=== PATIENT | female | born 1950 | race Caucasian/White ===

== ENCOUNTER 2016-07-08 10:51 | Inpatient (IN) ==
[2016-07-08] MEDS ORDERED: ONDANSETRON 4 MG/2 ML VIAL IV STA (11:22)
[2016-07-08] MEDS ORDERED: ASPIRIN 325 MG TABLET PO STA (11:22)
[2016-07-08] MEDS ORDERED: MORPHINE 2 MG/1 ML SYRINGE IV STA (11:22)
[2016-07-08] MEDS ORDERED: ONDANSETRON 4 MG/2 ML VIAL ONE (11:58)
[2016-07-08] MEDS ORDERED: MORPHINE 2 MG/1 ML SYRINGE ONE (11:58)
[2016-07-08] MEDS ORDERED: ASPIRIN 325 MG TABLET ONE (11:58)
--- NOTE | 2016-07-08 12:16 | XRay Report ---
XR chest 2V Indication: Chest pain. Comparison: None. Technique: PA and lateral chest x-ray was performed. Findings: Heart size, mediastinal contour, and hilar structures demonstrate no significant abnormalities. The lung parenchyma is clear. Bones and soft tissues demonstrate no significant abnormalities. Impression: 1. No active cardiopulmonary disease. 07/08/2016 12:12 PM PROCEDURE INTERPRETED AT [facility] DEPARTMENT OF RADIOLOGY Final Report Signed by: Dr. Emory Wang
--- NOTE | 2016-07-08 12:17 | EKG Report ---
Stationary ECG Study [facility] ER Test Date: 07/08/2016 12:15:51 PM Pat Name: LINA OSORIO Department: Room: Gender: F Tie Layer: : 1950 Requested by: Paul Zurita Order Number: [id number] Reading MD: DUANE MAIN Intervals [place] Rate: 78 P: 76 CT: 155 QRS: -54 QRSD: 91 T: 27 QT: 403 QTc: 437 Interpretive Statements SINUS RHYTHM WITH SINUS ARRHYTHMIA INDETERMINATE AXIS LOW QRS VOLTAGE IN PRECORDIAL LEADS PATTERN CONSISTENT WITH PULMONARY DISEASE WARNING: DATA QUALITY MAY AFFECT INTERPRETATION Electronically Signed On 07-09-16 07:01:29 CDT by DUANE MAIN [email or web address]
[2016-07-08 12:27] LABS: Basophils # 0.1 10*3/uL (0.0-0.2); Basophils % 0.5 % (0.0-0.8); Eosinophils # 0.1 10*3/uL (0.0-0.87); Eosinophils % 0.6 % (0.00-10.9); Hematocrit 42.4 VOL% (35.7-47.0); Hemoglobin 14.1 GM/DL (12.0-16.0); Immature Granulocytes % 0.7 %; Immature Granulocytes Absolute 0.11 #; Lymphocytes % 6.1 % (21.3-54.2); Mean Corpuscular HGB Conc 33.3 GM/DL (32-36); Mean Corpuscular Hemoglobin 27 PG (27-34); Mean Corpuscular Volume 82.2 FL (87-102); Mean Platelet Volume 10.2 FL (9.6-12.0); Monocytes # 1.7 10*3/uL (0.11-0.8); Monocytes % 10.1 % (1.7-12.7); Neutrophils # 13.7 10*3/uL (1.4-7.4); Platelet Count 389 T/CUMM (130-400); Red Blood Count 5.16 MC/CUMM (3.8-5.5); Red Cell Distribution Width 13.6 % (9.3-17.3); White Blood Count 16.7 T/CUMM (4-12)
[2016-07-08 12:38] LABS: Albumin 3.7 G/DL (3.4-5.0); Bilirubin,Total 1.4 MG/DL (0.2-1.0); Calcium 9.8 MG/DL (8.5-10.1); Potassium 3.9 MMOL/L (3.5-5.1); Total Protein 7.1 G/DL (6.4-8.3)
--- NOTE | 2016-07-08 14:12 | Ultrasound Report ---
US gallbladder Indication: Right upper quadrant abdominal pain. Elevated liver function studies. Comparison: None. Technique: Using transcutaneous probe, ultrasound imaging of the right upper quadrant was performed. Ultrasound images were captured and stored. Imaged structures include the liver, gallbladder, pancreas, right kidney, aorta, and inferior vena cava. Findings: The right hepatic lobe is 18 cm in craniocaudal dimension. Images submitted of the liver demonstrate somewhat heterogeneous appearance of the liver parenchyma with no discrete slightly hyperechoic round to slightly oval mass within the right hepatic lobe. This has some areas of through transmission associated. Size of this lesion is 5.5 x 6.0 x 7.3 cm. The may be minimal layering gallstones and/or sludge. Gallbladder wall is thickened measuring 6.2 mm. No pericholecystic fluid is present. Common bile duct is minimally enlarged measuring 5.2 cm. The pancreas demonstrates no evidence of pancreatic mass or ductal dilatation. Adjacent anterior margin of the pancreas, there is a round hypoechoic structure with central increased echotexture suggesting lymph node. This measures up to 2 cm. Additional nodes in the jessie hepatis are not excluded. Right kidney measures 9.3 cm in craniocaudal dimension. The aorta and inferior vena cava are not included on study. Impression: 1. Round to oval hyperechoic focus within the right hepatic lobe is present as detailed. There is some evidence of through transmission. Differential considerations include hepatoma, atypical hemangioma, focal fat, and metastatic disease. CT abdomen and pelvis utilizing liver mass protocol is recommended. 2. Multiple enlarged lymph nodes are suggested in the region of the jessie hepatis and pancreatic head. 3. The common bile duct is minimally enlarged. 4. Gallbladder wall thickening is present. A minimal amount of layering sludge or tiny stones are not excluded. 07/08/2016 2:04 PM PROCEDURE INTERPRETED AT [facility] DEPARTMENT OF RADIOLOGY Final Report Signed by: Dr. Emory Wang
--- NOTE | 2016-07-08 14:27 | CT Report ---
CT abdomen pelvis w con Indication: Right upper quadrant abdominal pain. Liver mass. Comparison: None. Technique: CT of the abdomen and pelvis was performed following administration of intravenous contrast. The CT examination was performed using one or more of the following dose reduction techniques: Automatic exposure control, adjustment of the mA and kV according to patient size, or iterative reconstruction techniques. Findings: Lower chest demonstrates no evidence of acute pathology. There is a focal area of soft tissue attenuation round to oval in shape adjacent to the inferior vena cava arising from the liver measuring 16 x 16 mm compatible with neoplasm or metastatic adenopathy. Tumor thrombus within the inferior vena cava is not entirely excluded. Numerous areas of abnormal enhancement and mass are present throughout the right hepatic lobe. The largest of these lies within the dome of the liver and measures 8.8 x 12.7 x 8.1 cm. Additionally, multiple heterogeneously enhancing lymph nodes are demonstrated within the jessie hepatis and portacaval regions. Portacaval lymph nodes measure up to 17 mm in short axis dimension. Nodes within the jessie hepatis measure up to 15 mm in short axis dimension. The left hepatic lobe demonstrates a small focus of abnormal enhancement within the central aspect of the medial segment. Spleen is enlarged measuring 13 cm x 5.8 cm x 10.9 cm. Stomach demonstrates no significant abnormality. The gallbladder is unremarkable. The adrenal glands and kidneys demonstrate no acute findings. Some areas of focal thinning involving the right renal cortex may reflect scarring versus lobulation. Small amount free fluid is noted dependently within the pelvis. Large bowel demonstrates no significant abnormality. The duodenum and small bowel demonstrate no significant abnormality. Appendix is not clearly identified and may be surgically absent. There is a well-circumscribed hypoattenuating lesion within the right femoral head that has surrounding sclerotic bone. This may represent hemangioma or other benign process. Metastatic disease not entirely excluded Otherwise, no specific evidence of osseous metastatic disease is demonstrated. Intrapelvic contents demonstrate no acute findings. Prior hysterectomy is present. Urinary bladder is unremarkable. Impression: 1. Diffusely distributed neoplastic process within the liver involves right and left hepatic lobe the largest tumor measuring up to approximately 12.7 cm maximum dimension. The appearance is most suggestive of diffuse hepatocellular carcinoma. 2. Metastatic adenopathy within the jessie hepatis and portacaval di stations is demonstrated. 3. Immediately abutting the vena cava, there is a small focus of soft tissue attenuation that may represent metastatic adenopathy versus satellite nodule from hepatic tumor. The vena cava is not well visualized in this region and involvement/invasion of the vena cava cannot be excluded. 4. Well-circumscribed lesion within the right femoral head does not have typical appearance of osseous metastatic disease. Surveillance of a required to assess stability. Alternatively single phase nuclear medicine bone scan may be useful for further evaluation of the skeletal system for osseous metastatic disease. 5. Mild splenomegaly is demonstrated. Also, not mentioned above is collaterals within the gastrosplenic ligament are noted that could reflect minimal portal venous hypertensive changes. 07/08/2016 2:12 PM PROCEDURE INTERPRETED AT [facility] DEPARTMENT OF RADIOLOGY Final Report Signed by: Dr. Emory Wang
[2016-07-08] MEDS ORDERED: ONDANSETRON 4 MG/2 ML VIAL IV PRN (14:40)
[2016-07-08] MEDS ORDERED: ACETAMINOPHEN 325 MG TABLET PO PRN (14:40)
--- NOTE | 2016-07-08 14:40 | Emergency Department Note ---
Edgar Kuo Jamie, am scribing for, and in the presence of, Jerod Alvarez MD 11:34. Antonio Kuo Doug C, MD, personally performed the services described in this documentation, ascribed by Ayan Hernández in my presence, and it is both accurate and complete 420 . Arrival - Arrival Chief Complaint: Non-Specific Stated Complaint: pain undeneath ribs ED Nursing Triage Note: Pt c/o louis rib pain with HALL and N/V started in the left side saw Dr Guo on Saturday but now having pain in both sides. Also having wt loss since [place] time. Mode of Arrival: Ambulatory Limitations: No Limitations Source: Patient, RN Notes Reviewed Time Seen by Provider: 07/08/16 11:13 - History of Present Illness HPI Narrative: Patient is a 66-year-old white female who presents emergency room with complaint of left chest pain that she states began 6 days ago. Patient states she is now hurting in her right chest as well and the pain is sharp and pleuritic in nature. By states the pain is worse with deep breaths and certain movement. She denies any calf swelling or tenderness and is never had a history of DVT or PE. Patient states she has had a subjective fever and some sweating. Patient has no history of any significant cough. Onset (ago): unknown Consistency: constant Severity: moderate Allergies/Adverse Reactions: Allergies Allergy/AdvReac Type Severity Reaction Status Date / Time sulfamethoxazole Allergy RASH Verified 07/08/16 10:55 [From ] trimethoprim [From ] Allergy RASH Verified 07/08/16 10:55 Strong Painkillers AdvReac Nausea Uncoded 07/08/16 10:55 Home Medications: Home Medications Medication Instructions Recorded Confirmed Type Amlodipine Besylate 10 mg PO QPM 07/08/16 07/08/16 History Aspirin EC Tab 81 mg PO QPM 07/08/16 07/08/16 History Atorvastatin [Lipitor] 40 mg PO BEDTIME 07/08/16 07/08/16 History Calcium (Citr)/Vit D 200-125 1 tablet PO QPM 07/08/16 07/08/16 History [Citracal + D] Ferrous Sulfate Tab [Feosol 325 mg PO MOWEFR 07/08/16 07/08/16 History Original Tab] Krill/Om-3/Dha/Epa/Phospho/Ast 1 capsule PO DAILY 07/08/16 07/08/16 History [[place]-3 Krill Oil 300 mg Sfgl] Losartan/Hydrochlorothiazide 1 each PO QAM 07/08/16 07/08/16 History [Losartan-Hctz 100-12.5 mg Tab] Meloxicam 15 mg PO BID 07/08/16 07/08/16 History Metformin HCl 850 mg PO BID 07/08/16 07/08/16 History Multivit-Min/FA/Lycopen/Lutein 1 each PO QAM 07/08/16 07/08/16 History [Centrum Silver Tablet] Nabumetone 500 mg PO BID 07/08/16 07/08/16 History Pantoprazole Sodium 40 mg PO QAM 07/08/16 07/08/16 History Pioglitazone [Actos] 15 mg PO BID 07/08/16 07/08/16 History cloNIDine HCl [Clonidine HCl] 0.1 mg PO QPM 07/08/16 07/08/16 History traMADol TAB [Ultram] 50 mg PO Q6H PRN 07/08/16 07/08/16 History Review of System - Review of System 12 point system: reviewed and no additional remarkable complaints except as stated - Review of System Constitutional: Absent: chills, diaphoresis, fever, weakness Eyes: Absent: vision change Respiratory: Absent: cough Cardiovascular: Absent: chest pain Gastrointestinal: Present: abdominal pain. Absent: nausea, vomiting, diarrhea, constipation Musculoskeletal: Absent: joint swelling Skin: Absent: rash, change in color Neurological: Absent: headache, weakness, numbness, confusion Hematological/Lymphatic: Absent: easy bleeding, easy bruising Medical,Surgical,& Family Hx - Medical History Cardio: History of: Hypertension Endocrine: History of: Diabetes Mellitus (NIDDM) Gastrointestinal: History of: GERD - Surgical History Reproductive Surgeries: Surgical HX of;: Section, Hysterectomy - Family History Family History: Reports;: Family Heart Disease (Father with history of coronary artery disease), Family Stroke (Father of CVA at 48 years of age) - Social History Smoking Status: Never smoker Exam Vital Signs: Vital Signs Temperature 96.6 F L 07/08/16 11:36 Pulse Rate 101 H 07/08/16 11:36 Respiratory Rate 18 07/08/16 11:36 Blood Pressure 176/99 07/08/16 11:36 O2 Sat by Pulse Oximetry 98 07/08/16 10:54 - General General appearance: alert, in no apparent distress - Head Head exam: Present: atraumatic, normocephalic, normal inspection - Eye Eye exam: Present: normal appearance, PERRL, EOMI - ENT ENT exam: Present: normal exam, normal oropharynx, mucous membranes moist - Neck Neck exam: Present: normal inspection, full ROM - Chest Chest inspection: Present: normal inspection, symmetric chest wall rise - Respiratory Respiratory exam: Present: normal lung sounds bilaterally - Cardiovascular Cardiovascular exam: Present: regular rate, normal rhythm, normal heart sounds - Abdominal Exam Abdominal exam: Present: tenderness (RUQ), normal bowel sounds - Extremities Exam Extremities exam: Present: normal inspection, full ROM - Neurological Exam Neurological exam: Present: alert, oriented X3, reflexes normal - Psychiatric Psychiatric exam: Present: normal affect, normal mood - Skin Skin exam: Present: warm, dry, intact, normal color Course Course Narrative: Patient's clinical presentation, laboratory and radiographic findings were discussed with Dr. Pina. Patient will be admitted to services of Dr. Guo. Results - Labs CBC & BMP: 07/08/16 11:59 07/08/16 11:59 Lab Results: I have reviewed the patients labs Labs: Laboratory Tests 07/08/16 07/08/16 07/08/16 11:59 11:59 11:59 WBC 16.7 H MCV 82.2 L Neut % (Auto) 82.0 H Lymph % (Auto) 6.1 L Neut # (Auto) 13.7 H Lymph # (Auto) 1.0 L Fannin # (Auto) 1.7 H ESR Westergren 35 H Chloride 97 L BUN/Creatinine Ratio 22.00 H Glucose 196 H Total Bilirubin 1.40 H AST 73 H Alkaline Phosphatase 149 H C-Reactive Protein 4.68 H Albumin/Globulin Ratio 1.0 L - Diagnostic Findings Procedure: Chest x-ray: report reviewed by me (No active cardiopulmonary disease. ), Ultrasound: report reviewed by me, pending (Round to oval hyperechoic focus within the right hepatic lobe is present as detailed. There is some evidence of through transmission. The common bile duct is minimally enlarged. ) Disposition Clinical Impression: Liver mass, Abdominal pain Case discussed with: patient, patient's family Disposition: Still a Patient Condition: Guarded Time of Disposition: :40
[2016-07-08] MEDS ORDERED: traMADol 50 MG TABLET PO PRN (14:44)
[2016-07-08] MEDS: MORPHINE 2 MG/1 ML SYRINGE IV PRN (17:01)
[2016-07-08] MEDS: SODIUM CHLORIDE 0.9% 1,000 ML IV SCH (17:05)
[2016-07-08] MEDS ORDERED: GLUCAGON 1 MG VIAL IM PRN (17:29)
[2016-07-08] MEDS ORDERED: DEXTROSE 50% 25 GM/50 ML VIAL IV PRN ×2 (17:29→17:30)
[2016-07-08] MEDS: amLODIPine 10 MG TABLET PO SCH (18:34)
[2016-07-08] MEDS: cloNIDine 0.1 MG TABLET PO SCH (18:34)
[2016-07-08] MEDS: DOCUSATE SODIUM 100 MG CAPSULE PO SCH (20:38)
[2016-07-08] MEDS: MELOXICAM 7.5 MG TABLET PO SCH (20:38)
[2016-07-08] MEDS: INSULIN LISPRO 100 UNIT/ML SUBCUT SCH (21:31)
[2016-07-09] MEDS: SODIUM CHLORIDE 0.9% 1,000 ML IV SCH ×3 (01:01→22:42)
[2016-07-09] MEDS: MORPHINE 2 MG/1 ML SYRINGE IV PRN (01:04)
[2016-07-09 02:58] LABS: Basophils # 0.1 10*3/uL (0.0-0.2); Basophils % 0.8 % (0.0-0.8); Eosinophils # 0.3 10*3/uL (0.0-0.87); Eosinophils % 2.2 % (0.00-10.9); Hemoglobin 12.3 GM/DL (12.0-16.0); Immature Granulocytes % 0.5 %; Immature Granulocytes Absolute 0.06 #; Lymphocytes # 1.8 10*3/uL (1.4-4.0); Lymphocytes % 15.6 % (21.3-54.2); Mean Corpuscular HGB Conc 33.2 GM/DL (32-36); Mean Corpuscular Hemoglobin 27 PG (27-34); Mean Corpuscular Volume 81.7 FL (87-102); Mean Platelet Volume 10.2 FL (9.6-12.0); Monocytes # 1.6 10*3/uL (0.11-0.8); Monocytes % 13.6 % (1.7-12.7); Neutrophils # 7.7 10*3/uL (1.4-7.4); Neutrophils % 67.3 % (38.7-73.9); Platelet Count 326 T/CUMM (130-400); Red Blood Count 4.53 MC/CUMM (3.8-5.5); Red Cell Distribution Width 13.7 % (9.3-17.3); White Blood Count 11.5 T/CUMM (4-12)
--- NOTE | 2016-07-09 08:12 | Family Practice History&Phys ---
Assessment and Plan (1) Liver mass Status: Acute Assessment and plan: Mass is very suspicious for a hepatic carcinoma. I have consulted Dr. Segovia and he will assist with workup. Current Visit: Yes (2) Hypertension Status: Chronic Assessment and plan: Stable to present Current Visit: Yes (3) Type 2 diabetes mellitus Status: Chronic Assessment and plan: Stable at present. Will place on sliding scale Current Visit: Yes (4) Gastroesophageal reflux Status: Chronic Assessment and plan: Stable at present Current Visit: Yes History of Present Illness Chief complaint: Weight loss and chest pain History of present illness: Ms. Kurtz is a 66 year old female Patient is a 66-year-old white female who presents emergency room with complaint of left chest pain that she states began 6 days ago. Patient states she is now hurting in her right chest as well and the pain is sharp and pleuritic in nature. By states the pain is worse with deep breaths and certain movement. She denies any calf swelling or tenderness and is never had a history of DVT or PE. Patient states she has had a subjective fever and some sweating. Patient has no history of any significant cough. Patient was evaluated in the emergency room and found to have a 12.7 cm hepatic mass. There are changes that are suspicious for a carcinoma. She has had no symptoms related to this and some weight loss. In view of history will be admitted for further evaluation therapy Home Medications Medication Instructions Recorded Confirmed Type Amlodipine Besylate 10 mg PO QPM 07/08/16 07/08/16 History Aspirin EC Tab 81 mg PO QPM 07/08/16 07/08/16 History Atorvastatin [Lipitor] 40 mg PO BEDTIME 07/08/16 07/08/16 History Calcium (Citr)/Vit D 200-125 1 tablet PO QPM 07/08/16 07/08/16 History [Citracal + D] Ferrous Sulfate Tab [Feosol 325 mg PO MOWEFR 07/08/16 07/08/16 History Original Tab] Krill/Om-3/Dha/Epa/Phospho/Ast 1 capsule PO DAILY 07/08/16 07/08/16 History [[place]-3 Krill Oil 300 mg Sfgl] Losartan/Hydrochlorothiazide 1 each PO QAM 07/08/16 07/08/16 History [Losartan-Hctz 100-12.5 mg Tab] Meloxicam 15 mg PO BID 07/08/16 07/08/16 History Metformin HCl 850 mg PO BID 07/08/16 07/08/16 History Multivit-Min/FA/Lycopen/Lutein 1 each PO QAM 07/08/16 07/08/16 History [Centrum Silver Tablet] Nabumetone 500 mg PO BID 07/08/16 07/08/16 History Pantoprazole Sodium 40 mg PO QAM 07/08/16 07/08/16 History Pioglitazone [Actos] 15 mg PO BID 07/08/16 07/08/16 History cloNIDine HCl [Clonidine HCl] 0.1 mg PO QPM 07/08/16 07/08/16 History traMADol TAB [Ultram] 50 mg PO Q6H PRN 07/08/16 07/08/16 History Allergies Allergy/AdvReac Type Severity Reaction Status Date / Time sulfamethoxazole Allergy RASH Verified 07/08/16 16:57 [From ] trimethoprim [From ] Allergy RASH Verified 07/08/16 16:57 Strong Painkillers AdvReac Nausea Uncoded 07/08/16 16:57 Medical,Surgical,& Family Hx - Medical History Cardio: History of: Hypertension Endocrine: History of: Diabetes Mellitus (NIDDM) Genitourinary: History of: Recurring Urinary Tract Infections Gastrointestinal: History of: GERD Reproductive: History of: Endometriosis - Surgical History Reproductive Surgeries: Surgical HX of;: Section, Hysterectomy - Family History Family History: Reports;: Family Heart Disease (Father with history of coronary artery disease), Family Stroke (Father of CVA at 48 years of age) - Social History Smoking Status: Never smoker Frequency of Alcohol Use: None Type of Drug Use: None Marital Status: Lives With:: Spouse Functional capacity: independent ambulation Exam - Constitutional Vitals: Period Temp Pulse Resp BP Sys/Bowen Pulse Ox Last 24 Hr 96.7 F-98.9 F 60-92 18-20 118-175/57-98 97-100 General appearance: no acute distress - Head Head exam: Present: normal inspection - Eye Pupils: Present: RODERICK - Neck Neck exam: Present: normal inspection - Respiratory Respiratory exam: Present: clear to auscultation bilaterally - Cardiovascular Cardiovascular exam: Present: regular rate and rhythm - GI/Abdominal GI/Abdominal exam: Present: normal bowel sounds - Extremities Exam Extremities exam: Present: normal inspection - Back Exam Back exam: Present: normal inspection - Neurological Exam Neurological exam: Present: alert - Psychiatric Psychiatric exam: Present: normal affect - Skin Skin exam: Present: normal color Results - Labs CBC & BMP: 07/09/16 02:02 07/08/16 11:59
--- NOTE | 2016-07-09 08:30 | Oncology Consult Note ---
Assessment and Plan - Time spent with patient Time spent with patient: Greater than 30 minutes History of Present Illness History of present illness: Ms. Kurtz is a 66 year old female who was admitted yesterday with bilateral chest wall pain and was found to have numerous liver lesions on CT scan. There is also enlarged lymph nodes within the jessie hepatis and portacaval region. She decided to undergo biopsy today. 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 She has stayed up-to-date on her screenings. She had a mammogram done in March of this year which was negative. Her colonoscopy was done 6 years ago and was negative at that time. She has had a total abdominal hysterectomy with removal of her uterus and ovaries. She denies any symptoms of weight loss, fatigue, hematochezia, or hematemesis. Overall she has felt well other than the pain. Recommendations: She needs a biopsy of 1 of the liver lesions. Hopefully pathology will be able to direct us toward the primary tumor. I will go ahead and order tumor markers. I will do a CT of her chest for further workup. I do not see a reason for any type of endoscopy at this time. Also hold off on a bone scan. Once her tumor markers return I will be able to give further guidance. However , we are ultimately waiting for the pathology to return. If she is ready for discharge before pathology is back, I can continue with her workup as an outpatient. Home Medications Medication Instructions Recorded Confirmed Type Amlodipine Besylate 10 mg PO QPM 07/08/16 07/08/16 History Aspirin EC Tab 81 mg PO QPM 07/08/16 07/08/16 History Atorvastatin [Lipitor] 40 mg PO BEDTIME 07/08/16 07/08/16 History Calcium (Citr)/Vit D 200-125 1 tablet PO QPM 07/08/16 07/08/16 History [Citracal + D] Ferrous Sulfate Tab [Feosol 325 mg PO MOWEFR 07/08/16 07/08/16 History Original Tab] Krill/Om-3/Dha/Epa/Phospho/Ast 1 capsule PO DAILY 07/08/16 07/08/16 History [[place]-3 Krill Oil 300 mg Sfgl] Losartan/Hydrochlorothiazide 1 each PO QAM 07/08/16 07/08/16 History [Losartan-Hctz 100-12.5 mg Tab] Meloxicam 15 mg PO BID 07/08/16 07/08/16 History Metformin HCl 850 mg PO BID 07/08/16 07/08/16 History Multivit-Min/FA/Lycopen/Lutein 1 each PO QAM 07/08/16 07/08/16 History [Centrum Silver Tablet] Nabumetone 500 mg PO BID 07/08/16 07/08/16 History Pantoprazole Sodium 40 mg PO QAM 07/08/16 07/08/16 History Pioglitazone [Actos] 15 mg PO BID 07/08/16 07/08/16 History cloNIDine HCl [Clonidine HCl] 0.1 mg PO QPM 07/08/16 07/08/16 History traMADol TAB [Ultram] 50 mg PO Q6H PRN 07/08/16 07/08/16 History Allergies Allergy/AdvReac Type Severity Reaction Status Date / Time sulfamethoxazole Allergy RASH Verified 07/08/16 16:57 [From ] trimethoprim [From ] Allergy RASH Verified 07/08/16 16:57 Strong Painkillers AdvReac Nausea Uncoded 07/08/16 16:57 Medical,Surgical,& Family Hx - Medical History Cardio: History of: Hypertension Endocrine: History of: Diabetes Mellitus (NIDDM) Genitourinary: History of: Recurring Urinary Tract Infections Gastrointestinal: History of: GERD Reproductive: History of: Endometriosis - Surgical History Reproductive Surgeries: Surgical HX of;: Section, Hysterectomy - Family History Family History: Reports;: Family Heart Disease (Father with history of coronary artery disease), Family Stroke (Father of CVA at 48 years of age) - Social History Smoking Status: Never smoker Frequency of Alcohol Use: None Type of Drug Use: None 12 point system: reviewed and no additional remarkable complaints except as stated - Constitutional Constitutional: Absent: chills, fatigue, fever(s) - Cardiovascular Cardiovascular ROS IM: Present: chest pain - Respiratory Respiratory: Absent: cough, dyspnea - Gastrointestinal Gastrointestinal: Present: abdominal pain. Absent: early satiety, hematemesis, hematochezia, loose stools, melena, nausea Exam - Constitutional Vitals: Period Temp Pulse Resp BP Sys/Bowen Pulse Ox Last 24 Hr 96.7 F-98.9 F 60-92 18-20 118-175/57-98 97-100 General appearance: normal weight, no acute distress - Head Head Exam: Present: normocephalic, atraumatic - Eye Eye Exam: Present: EOMI Pupils: Present: PERRL - ENT ENT exam: Present: normal exam, normal oropharynx - Neck Neck exam: Absent: lymphadenopathy, thyromegaly - Respiratory Respiratory exam: Present: CTAB. Absent: wheezes - Cardiovascular Cardiovascular exam: Present: RRR. Absent: JVD, tachycardia - GI/Abdominal GI/Abdominal exam: Present: soft. Absent: ascites, distended, mass - Neurological Exam Neurological exam: Present: alert, oriented X3 - Psychiatric Psychiatric exam: Present: normal affect, normal mood - Skin Skin exam: Present: warm, dry Results - Labs CBC & BMP: 07/09/16 02:02 07/08/16 11:59 Lab Results: I have reviewed the past 24 hour labs - Diagnostic Findings Procedure: CT Abdomen and Pelvis: report reviewed by me, image reviewed by me
[2016-07-09] MEDS: MELOXICAM 7.5 MG TABLET PO SCH ×2 (09:13→20:45)
[2016-07-09] MEDS: LOSARTAN/HCTZ 50-12.5 MG TABLET PO SCH (09:13)
[2016-07-09] MEDS: LOSARTAN 50 MG TABLET PO SCH (09:13)
[2016-07-09] MEDS: PANTOPRAZOLE 40 MG TABLET PO SCH (09:13)
[2016-07-09] MEDS: INSULIN LISPRO 100 UNIT/ML SUBCUT SCH ×4 (09:13→22:42)
[2016-07-09] MEDS: DOCUSATE SODIUM 100 MG CAPSULE PO SCH ×2 (09:14→20:45)
[2016-07-09] MEDS: MULTIVITAMIN (CENTRUM) TABLET PO SCH (09:16)
--- NOTE | 2016-07-09 09:47 | CT Report ---
Exam: CT chest w con Date: 07/09/2016 8:14 AM Comparison: CT abdomen and pelvis 07/08/2016 Indication: Metastatic workup Technique:[Sequential scans of the chest were obtained following the injection of 80 cc Omnipaque 350. Coronal and sagittal 2-D reconstructions were obtained. Total DLP:: 276.4] Findings: The heart is borderline size with cardiac fat pads and coronary artery calcifications. No evidence of aortic dissection or definite pulmonary emboli. Enlarged mediastinal nodes. A node in the subcarinal location measures 13 mm in short axis. Limited evaluation of the breasts. Small hypodensities are noted in the visualized thyroid gland. Persistent large masses and splenomegaly. Small hiatal hernia with degenerative changes. Small areas of rarefaction are noted especially in the spine. Subsegmental atelectasis especially in the lower lobes. 6 mm noncalcified pulmonary nodule in the right middle lobe on scan 46. 6 mm noncalcified nodular density in the inferior lingula on scan 63. 4 mm noncalcified pulmonary nodule in the left lower lobe on scan 62. Additional smaller nodular findings are noted. Impression: Persistent large hepatic masses with findings consistent with pulmonary, di, and possible osseous metastatic disease. Indeterminate small hypodensities in the thyroid gland. Cardiophrenic fat pads with coronary artery calcifications and small hiatal hernia. This CT exam was performed using one or more the following dose reduction techniques: Automated exposure control, adjustment of the MA and/or KV according to patient size, or use of iterative reconstruction technique. PROCEDURE INTERPRETED AT [facility] DEPARTMENT OF RADIOLOGY Final Report Signed by: Dr. Danica Ortega
[2016-07-09 09:49] LABS: AFP Tumor < 1.3 NG/ML (0-8)
[2016-07-09 09:54] LABS: Cancer Antigen 19-9 < 1.2 U/ML (0-37); Carcinoembryonic Antigen < 0.5 NG/ML (0.0-5.0)
[2016-07-09 14:14] LABS: INR 1.1; PT Patient Result 11.4 SECS
[2016-07-09] MEDS ORDERED: DIAZEPAM 5 MG TABLET PO ONE (14:16)
[2016-07-09] MEDS: FERROUS SULFATE 325 MG TABLET PO SCH (14:31)
--- NOTE | 2016-07-09 15:18 | History and Physical Update ---
Sedation H&P Update - History and Physical H&P was reviewed, the patient examined and there: are no changes in the patients condition since last H&P was completed. (. CT guided liver biopsy requested.) - Dictation Physical: refer to scanned H&P - Sedation Plan for Sedation: minimal Patient Consent: Procedure disscussed with patient and patinet has consented., Risks and benefits were discussed with patient,including infection,, bleeding, injury to surrounding structures, seizure, temporary nerve, Patient understands and accepts potential risks/benefits and agrees to, proceed. ASA Class: II Airway Assessment: Class II: Soft palate, uvula, fauces visible
--- NOTE | 2016-07-09 15:40 | Post Interventional Procedure ---
Pre-op diagnosis: Liver mass Post-op diagnosis: same Procedure: CT guided liver biopsy Radiologist: Kim Taylor Anesthesia: local Specimens: other (5 core samples taken, 2 for flow cytometry) Condition: stable Description/Findings: A formal timeout was performed. Patient was placed supine on the CT table and historic preservationist imaging obtained. The ventral skin overlying the target lesion was prepped and draped in a sterile fashion. 5 cc 1% lidocaine was injected. Under CT fluoroscopic guidance, a 19-gauge guide needle was advanced into the lesion by this radiologist. Five 20-gauge core biopsies were obtained. Specimen was sent for routine pathology and flow cytometry. The needle was removed without complication. Patient tolerated the procedure well. Impression: CT-guided biopsy of mass in right lobe of liver Assessment and Plan - Time spent with patient Time spent with patient: Less than 30 minutes
--- NOTE | 2016-07-09 15:42 | CT Report ---
History: Liver mass Date: 07/09/2016 Study: CT guided liver biopsy Comparison exam: Abdomen CT exam 07/08/2016 CT-GUIDED BIOPSY LIVER Description: A formal timeout was performed. Patient was placed supine on the CT table and manager payroll imaging obtained. The ventral skin overlying the target lesion was prepped and draped in a sterile fashion. 5 cc 1% lidocaine was injected. Under CT fluoroscopic guidance, a 19-gauge guide needle was advanced into the lesion by this radiologist. Five 20-gauge core biopsies were obtained. Specimen was sent for routine pathology and flow cytometry. The needle was removed without complication. Patient tolerated the procedure well. Impression: CT-guided biopsy of mass in right lobe of liver. This CT exam was performed using one or more the following dose reduction techniques: Automated exposure control, adjustment of the MA and/or KV according to patient size, or use of iterative reconstruction technique. PROCEDURE INTERPRETED AT [facility] DEPARTMENT OF RADIOLOGY Final Report Signed by: Dr. Kim Taylro
[2016-07-09] MEDS: amLODIPine 10 MG TABLET PO SCH (18:52)
[2016-07-09] MEDS: cloNIDine 0.1 MG TABLET PO SCH (18:52)
[2016-07-10 06:35] LABS: Apearance,Urine CLEAR (Clear); Bacteria,Urine Occasional /HPF (Few); Bilirubin,Urine Negative (Negative); Blood, Urine Negative (Negative); Glucose,Urine (UA) Negative (Negative); Ketones,Urine Negative (Negative); Mucus,Urine Occasional /LPF (Occasional); Nitrite,Urine Negative (Negative); Protein,Urine Negative; RBC,Urine 2 /HPF (0-4); Urine Color Straw (Yellow); Urine Specific Gravity 1.008 (1.001-1.035); Urine Urobilinogen < 2.0 EU/DL (0.2-1.0); WBC,Urine 1 /HPF (0-6)
[2016-07-10 06:54] LABS: Basophils # 0.1 10*3/uL (0.0-0.2); Basophils % 0.5 % (0.0-0.8); Eosinophils # 0.4 10*3/uL (0.0-0.87); Eosinophils % 3.9 % (0.00-10.9); Hematocrit 37.2 VOL% (35.7-47.0); Hemoglobin 12.2 GM/DL (12.0-16.0); Immature Granulocytes % 0.4 %; Immature Granulocytes Absolute 0.04 #; Lymphocytes # 1.3 10*3/uL (1.4-4.0); Mean Corpuscular HGB Conc 32.8 GM/DL (32-36); Mean Corpuscular Hemoglobin 27 PG (27-34); Mean Corpuscular Volume 82.1 FL (87-102); Mean Platelet Volume 9.7 FL (9.6-12.0); Monocytes % 11.2 % (1.7-12.7); Neutrophils # 6.4 10*3/uL (1.4-7.4); Platelet Count 326 T/CUMM (130-400); Red Blood Count 4.53 MC/CUMM (3.8-5.5); Red Cell Distribution Width 13.3 % (9.3-17.3); White Blood Count 9.1 T/CUMM (4-12)
[2016-07-10] MEDS: SODIUM CHLORIDE 0.9% 1,000 ML IV SCH ×2 (07:16→09:59)
[2016-07-10] MEDS ORDERED: ZALEPLON 5 MG CAPSULE PO PRN (07:49)
--- NOTE | 2016-07-10 08:03 | Family Practice Progress Note ---
Family Practice - PN: Subj Interval history: Patient states she did not rest well because of chest wall pain and inability to sleep. She was not aware that she had as needed orders for sleep and pain. Still complaining of some pain in her left chest wall with radiation into her back. Patient states this started after using hedge clippers last week. She denies any right chest wall or abdominal pain. Also complaining of pain in her left shoulder. Thinks that she hurt the shoulder when she was working in the yard. Will start on topical medications to the affected area as well as give 2 doses of Solu-Medrol.. Part of a.m. lab is pending but tumor markers ordered yesterday are negative. Chest CT revealed enlarged mediastinal nodes with a 6 mm, noncalcified nodular density in the lingula and a 4 mm noncalcified density in the left lower lobe. Multiple smaller densities are noted. Questionable small density in the thyroid as well as questionable osseous metastatic involvement. We are awaiting the results from liver biopsy obtained last p.m.. I will allow Dr. Segovia decide if he wants to order bone scan and other studies. Will probably wait for the path report before ordering additional evaluation. I have discussed in detail with patient and . Exam (Progress Note) - Constitutional Vitals: Period Temp Pulse Resp BP Sys/Bowen Pulse Ox Last 24 Hr 98.1 F-98.9 F 72-90 16-20 145-195/57-86 96-100 Results - Labs CBC & BMP: 07/10/16 06:23 07/08/16 11:59 Assessment and Plan (1) Liver mass Status: Acute Assessment and plan: Mass is very suspicious for a hepatic carcinoma. I have consulted Dr. Segovia and he will assist with workup. Current Visit: Yes (2) Hypertension Status: Chronic Assessment and plan: Stable to present Current Visit: Yes (3) Type 2 diabetes mellitus Status: Chronic Assessment and plan: Stable at present. Will place on sliding scale Current Visit: Yes (4) Gastroesophageal reflux Status: Chronic Assessment and plan: Stable at present Current Visit: Yes
--- NOTE | 2016-07-10 08:26 | Oncology Progress Note ---
Assessment and Plan (1) Lung nodule, multiple Status: Acute Current Visit: Yes (2) Chest pain Status: Acute Current Visit: Yes (3) Liver mass Status: Acute Current Visit: Yes Oncology Subjective PN Interval history: Ms. Kurtz complains of continued rib pain and shoulder pain. Her CEA, CA-19-9 , and alpha-fetoprotein level yesterday were negative. Her CT chest did not show any obvious areas of malignancy but did mention 3 separate lung nodules and some slightly enlarged mediastinal lymph nodes. These by no means are definitive for metastatic disease but are definitely areas of concern given the process seen in her liver. She is undergone biopsy of 1 of the liver lesions and we are awaiting pathology. Given her severe pain, I will go ahead and order a bone scan to be done today. From an oncology standpoint she does not have to remain in the hospital and I can do the further workup for her through clinic. After the bone scan is done, we should wait for pathology to return before we pursue any further workup such as endoscopies or PET scans. Given the negative alpha-fetoprotein, primary liver cancer such as hepatocellular carcinoma is unlikely. A negative CEA and a negative CA-19-9 point away from a gastrointestinal malignancy but are by no means definitive. At this point we should also consider such variables as infectious etiologies, but these are extremely unlikely. We will have more guidance once pathology is able to evaluate her biopsy specimen. I have remained in contact with her son who is the urologist in [place] and my previous classmate in medical school. Exam - Constitutional Vitals: Period Temp Pulse Resp BP Sys/Bowen Pulse Ox Last 24 Hr 98.1 F-98.9 F 72-90 16-20 145-195/57-86 96-100 General appearance: normal weight, no acute distress - Head Head Exam: Present: normocephalic, atraumatic - Eye Eye Exam: Present: EOMI Pupils: Present: PERRL - ENT ENT exam: Present: normal exam, normal oropharynx - Neck Neck exam: Absent: lymphadenopathy, thyromegaly - Respiratory Respiratory exam: Present: CTAB. Absent: wheezes - Cardiovascular Cardiovascular exam: Present: RRR. Absent: JVD, tachycardia Results - Labs CBC & BMP: 07/10/16 06:23 07/08/16 11:59 Lab Results: I have reviewed the past 24 hour labs - Diagnostic Findings Procedure: CT Abdomen and Pelvis: report reviewed by me, CT - chest: report reviewed by me
[2016-07-10] MEDS ORDERED: methylPREDNISolone SOD SUC 40 MG/1 ML VIAL IV SCH (09:00)
[2016-07-10] MEDS: INSULIN LISPRO 100 UNIT/ML SUBCUT SCH ×4 (10:00→21:47)
[2016-07-10] MEDS: MELOXICAM 7.5 MG TABLET PO SCH ×2 (10:01→20:26)
[2016-07-10] MEDS: LOSARTAN 50 MG TABLET PO SCH (10:02)
[2016-07-10] MEDS: MULTIVITAMIN (CENTRUM) TABLET PO SCH (10:02)
[2016-07-10] MEDS: DOCUSATE SODIUM 100 MG CAPSULE PO SCH ×2 (10:03→20:26)
[2016-07-10] MEDS: PANTOPRAZOLE 40 MG TABLET PO SCH (10:03)
[2016-07-10] MEDS: methylPREDNISolone SOD SUC 40 MG/1 ML VIAL IV SCH ×2 (10:04→16:21)
[2016-07-10] MEDS: DICLOFENAC 1% GEL 100 GM TUBE TOP SCH ×3 (12:35→20:26)
[2016-07-10] MEDS: LOSARTAN/HCTZ 50-12.5 MG TABLET PO SCH (12:35)
--- NOTE | 2016-07-10 13:20 | Nuclear Medicine Report ---
Exam: Whole-body bone scan Date: July 10, 2016 Comparison: None Reason: Metastatic workup, liver mass Technique: 30 mCi of technetium 99m MDP was administered IV. Delayed anterior and posterior whole body images were then acquired. Findings: There is mild increased radiotracer activity at the shoulders, which is likely degenerative. There is no evidence of osseous metastatic disease. Impression: There is no evidence of osseous metastatic disease. PROCEDURE INTERPRETED AT [facility] DEPARTMENT OF RADIOLOGY Final Report Signed by: Dr. Jodie Vidales
[2016-07-10] MEDS: amLODIPine 10 MG TABLET PO SCH (18:27)
[2016-07-10] MEDS: cloNIDine 0.1 MG TABLET PO SCH (18:27)
[2016-07-11 05:58] LABS: Basophils % 0.2 % (0.0-0.8); Hematocrit 40.2 VOL% (35.7-47.0); Hemoglobin 13.2 GM/DL (12.0-16.0); Immature Granulocytes % 1.5 %; Immature Granulocytes Absolute 0.21 #; Lymphocytes # 1.4 10*3/uL (1.4-4.0); Lymphocytes % 9.4 % (21.3-54.2); Mean Corpuscular HGB Conc 32.8 GM/DL (32-36); Mean Corpuscular Hemoglobin 27 PG (27-34); Mean Corpuscular Volume 80.9 FL (87-102); Mean Platelet Volume 9.5 FL (9.6-12.0); Monocytes % 6.9 % (1.7-12.7); Neutrophils # 11.8 10*3/uL (1.4-7.4); Platelet Count 409 T/CUMM (130-400); Red Blood Count 4.97 MC/CUMM (3.8-5.5); Red Cell Distribution Width 13.5 % (9.3-17.3); White Blood Count 14.4 T/CUMM (4-12)
[2016-07-11 06:30] LABS: Albumin 3.1 G/DL (3.4-5.0); Bilirubin,Total 0.8 MG/DL (0.2-1.0); Calcium 9.1 MG/DL (8.5-10.1); Total Protein 6.4 G/DL (6.4-8.3)
[2016-07-11 06:31] LABS: Osmolality,Calculated 289.1 MOS/KG (273-304); Potassium 3.7 MMOL/L (3.5-5.1)
[2016-07-11] MEDS: SODIUM CHLORIDE 0.9% 1,000 ML IV SCH (07:18)
[2016-07-11] MEDS: INSULIN LISPRO 100 UNIT/ML SUBCUT SCH ×3 (07:30→16:30)
--- NOTE | 2016-07-11 07:59 | Discharge Summary ---
Hospital Course - Hospital Course Hospital Course: istory of present illness: Ms. Kurtz is a 66 year old female Patient is a 66-year-old white female who presents emergency room with complaint of left chest pain that she states began 6 days ago. Patient states she is now hurting in her right chest as well and the pain is sharp and pleuritic in nature. By states the pain is worse with deep breaths and certain movement. She denies any calf swelling or tenderness and is never had a history of DVT or PE. Patient states she has had a subjective fever and some sweating. Patient has no history of any significant cough. Patient was evaluated in the emergency room and found to have a 12.7 cm hepatic mass. There are changes that are suspicious for a carcinoma. She has had no symptoms related to this and some weight loss. In view of history will be admitted for further evaluation therapy. Hospital course-patient was admitted to hospital lab and x-ray studies obtained. Patient was seen in consultation by Dr. Segovia and additional studies were ordered. Chest CT revealed a hypodense area in the thyroid as well as several small noncalcified nodules. Bone scan was unremarkable. Her lab studies were essentially normal. A biopsy was attempted of the mass in the liver but produce normal tissue. She is scheduled to have a repeat biopsy this a.m. . We will plan to discharge patient to home care after liver biopsy. Her gallbladder was suspicious for gallbladder disease. We will obtain a HIDA scan for completeness. Patient is stable at time of discharge. Will arrange follow-up appointment with Dr. Segovia later this week and he will review liver biopsy and studies. I have discussed this with patient and in detail. Diagnosis - Discharge Diagnosis (1) Liver mass Status: Acute (2) Hypertension Status: Chronic (3) Type 2 diabetes mellitus Status: Chronic (4) Gastroesophageal reflux Status: Chronic Specialty Discharge - Follow Up or Referrals Follow up with: Phill Segovia MD [Physician] - (She is to follow-up with Dr. Segovia later this week as he has directed) Discharge Plan - Discharge Data Disposition: Disch To Home/Self Care Condition at Discharge: Stable Discharge Diet: advance to your usual diet Activity: resume usual activities as tolerated Hygiene: no restrictions Weight Bearing at Discharge: full weight bearing Driving: no restrictions - Discharge Medications Continue Krill/Om-3/Dha/Epa/Phospho/Ast [Westfir-3 Krill Oil 300 mg Sfgl] 1 capsule PO DAILY Calcium (Citr)/Vit D 200-125 [Citracal + D] 1 tablet PO QPM Multivit-Min/FA/Lycopen/Lutein [Centrum Silver Tablet] 1 each PO QAM Aspirin EC Tab 81 mg PO QPM cloNIDine HCl [Clonidine HCl] 0.1 mg PO QPM Amlodipine Besylate 10 mg PO QPM Pantoprazole Sodium 40 mg PO QAM Atorvastatin [Lipitor] 40 mg PO BEDTIME Pioglitazone [Actos] 15 mg PO BID Metformin HCl 850 mg PO BID Meloxicam 15 mg PO BID traMADol TAB [Ultram] 50 mg PO Q6H PRN PRN Reason: Pain Ferrous Sulfate Tab [Feosol Original Tab] 325 mg PO MOWEFR Nabumetone 500 mg PO BID Losartan/Hydrochlorothiazide [Losartan-Hctz 100-12.5 mg Tab] 1 each PO QAM - Follow Up or Referral Follow Up: Phill Segovia MD [Physician] - (She is to follow-up with Dr. Segovia later this week as he has directed) - Forms/Instructions Exam - Constitutional Vitals: Period Temp Pulse Resp BP Sys/Bowen Pulse Ox Last 24 Hr 97 F-98.4 F 67-100 16-20 156-174/67-84 94-98 General appearance: no acute distress - Head Head exam: Present: normal inspection - Eye Pupils: Present: RODERICK - ENT ENT exam: Present: normal exam - Neck Neck exam: Present: normal inspection - Respiratory Respiratory exam: Present: clear to auscultation bilaterally - Cardiovascular Cardiovascular exam: Present: regular rate and rhythm - GI/Abdominal GI/Abdominal exam: Present: normal bowel sounds, soft - Extremities Exam Extremities exam: Present: normal inspection - Back Exam Back exam: Present: normal inspection - Neurological Exam Neurological exam: Present: alert, oriented X3 - Psychiatric Psychiatric exam: Present: normal affect Discharge Results Procedures and tests throughout hospitalization: Pending Orders 07/11/16 07:34 NM biliary scan delayed Routine 07/11/16 12:40 CT biopsy liver w core Routine Labs on day of discharge: Labs from last 24 hours 07/11/16 07/11/16 07/10/16 05:29 05:29 20:05 WBC 14.4 H D RBC 4.97 Hgb 13.2 Hct 40.2 MCV 80.9 L MCH 27 MCHC 32.8 RDW 13.5 Plt Count 409 H D MPV 9.5 L Neut % (Auto) 82.0 H Lymph % (Auto) 9.4 L Forest % (Auto) 6.9 Eos % (Auto) 0.0 Baso % (Auto) 0.2 Neut # (Auto) 11.8 H Lymph # (Auto) 1.4 Forest # (Auto) 1.0 H Eos # (Auto) 0.0 Baso # (Auto) 0.0 Immature Gran % 1.5 Nucleated RBC % 0.0 Immature Gran # 0.21 Nucleated RBCs # 0.00 Sodium 142 Potassium 3.7 Chloride 106 Carbon Dioxide 24 Anion Gap 15.7 H BUN 14 Creatinine 0.80 GFR Calculation 86 BUN/Creatinine Ratio 17.00 Glucose 203 H POC Glucose 350 H Calculated Osmolality 289.1 Calcium 9.1 Total Bilirubin 0.80 AST 33 ALT 23 Alkaline Phosphatase 144 H Total Protein 6.4 Albumin 3.1 L Globulin 3.3 Albumin/Globulin Ratio 0.9 L 07/10/16 07/10/16 15:41 11:05 WBC RBC Hgb Hct MCV MCH MCHC RDW Plt Count MPV Neut % (Auto) Lymph % (Auto) Forest % (Auto) Eos % (Auto) Baso % (Auto) Neut # (Auto) Lymph # (Auto) Forest # (Auto) Eos # (Auto) Baso # (Auto) Immature Gran % Nucleated RBC % Immature Gran # Nucleated RBCs # Sodium Potassium Chloride Carbon Dioxide Anion Gap BUN Creatinine GFR Calculation BUN/Creatinine Ratio Glucose POC Glucose 350 H 218 H Calculated Osmolality Calcium Total Bilirubin AST ALT Alkaline Phosphatase Total Protein Albumin Globulin Albumin/Globulin Ratio DS: Provider Date of admission: 07/10/16 09:37 Primary care physician: Josef Guo DO Attending physician on admission: Josef Guo DO Discharging clinician: Josef Guo DO
--- NOTE | 2016-07-11 08:28 | Oncology Progress Note ---
Assessment and Plan (1) Lung nodule, multiple Status: Acute Current Visit: Yes (2) Chest pain Status: Acute Current Visit: Yes (3) Liver mass Status: Acute Current Visit: Yes Oncology Subjective PN Interval history: Ms. Kurtz is doing better today. She is scheduled for repeat biopsy of the abnormal liver findings. I am fearful that the previous biopsy missed the concerning area. We will also obtain a HIDA scan to further evaluate the gallbladder. I had a lengthy discussion with Ms. Kurtz and her son about her situation. For now all workups of this liver have returned back as normal other than the very concerning findings on the CT and ultrasound. If this biopsy is negative, we either have the option of doing a repeat image in 6 weeks versus going for an open biopsy. If the gallbladder appears abnormal on HIDA scan, a laparoscopic evaluation with cholecystectomy is feasible. She can be discharged today from my standpoint and I can resume outpatient management next week after the holiday. Exam - Constitutional Vitals: Period Temp Pulse Resp BP Sys/Bowen Pulse Ox Last 24 Hr 97 F-98.4 F 67-100 16-20 156-174/67-84 94-98 Results - Labs CBC & BMP: 07/11/16 05:29 07/11/16 05:29 Specialty Discharge - Follow Up or Referrals Follow up with: Phill Segovia MD [Physician] - (She is to follow-up with Dr. Segovia later this week as he has directed)
[2016-07-11] MEDS ORDERED: DIAZEPAM 5 MG TABLET PO ONE (08:58)
[2016-07-11] MEDS: LOSARTAN 50 MG TABLET PO SCH ×2 (09:00→15:29)
[2016-07-11] MEDS: MULTIVITAMIN (CENTRUM) TABLET PO SCH ×2 (09:00→15:30)
[2016-07-11] MEDS: DOCUSATE SODIUM 100 MG CAPSULE PO SCH (09:00)
[2016-07-11] MEDS: MELOXICAM 7.5 MG TABLET PO SCH ×2 (09:00→15:30)
[2016-07-11] MEDS: PANTOPRAZOLE 40 MG TABLET PO SCH ×2 (09:00→15:29)
[2016-07-11] MEDS: LOSARTAN/HCTZ 50-12.5 MG TABLET PO SCH ×2 (09:00→15:28)
[2016-07-11] MEDS: DICLOFENAC 1% GEL 100 GM TUBE TOP SCH ×3 (10:20→17:00)
--- NOTE | 2016-07-11 12:39 | Pathology Report from [facility] ---
[facility] [place] # : [id number] PATIENT NAME : Kelli Kurtz ORDERING DR : NOLAN SALDANA MD CLINICAL HX: Multiple liver masses and findings consistent with pulmonary, di and possible osseous metastatic disease - CEA <0.5 AFP <1.3 CA <1.2 POST-OP DX: Same SPECIMEN INFO: #1 Liver, claudine cut x 3 - in formalin #2 Liver, claudine cut x 2 - for flow cytometry GROSS DESCRIPTION: #1 Received in formalin labeled with the patients name KELLI KURTZ and LIVER consists of multiple anshul-shaped tissue fragments measuring from 0.2 x 0.1 cm to 1.8 x 1.8 cm. Submitted in cassette #1.#2 Received in cytolyte fixative for flow cytometry. DIAGNOSIS FOR KELLI KURTZ: #1 LIVER BIOPSY: Benign liver tissue, no evidence of metastatic malignancy.#2 FLOW To follow COLLECTED DATE: 07/09/2016 [facility] REPORT DATE: 07/10/2016 SUPPLEMENTAL TEXT: Flow cytometry report from Natasha Doshi MD., Senior Hematopathologist, [place], [facility] [place]:#2 LIVER TISSUE SUBMITTED IN RPMI: Limited liver tissue with no definitive evidence of clonal B-cells or clonal T- cells.INTERPRETATION: Limited liver tissue sample is submitted for flow cytometry. The integrity of the sample is markedly decreased. Selected markers for mature B-cells and mature T-cells are performed. Lymphocytes comprise ~14% of the total cells. The B-lymphocytes show a normal kappa:lambda ratio. There is no evidence of a monotypic B-cell population. The T- lymphocytes show no aberrant antigen expression, and the CD4:CD8 ratio is normal. There is no definitive evidence of clonal B-cells or clonal T-cells identified. Of note, routine flow cytometry is not generally capable of detecting Hodgkin lymphoma or non hematopoietic neoplasms and the results should be interpreted in the context of markedly increased cell integrity and limited evaluation. Correlation with clinical data, morphologic studies, and anxillary studies is recommended for a complete evaluation. These results are interpreted with caution due to reduced viability of the specimen. SUPPLEMENTAL DATE: 07/10/2016 ELECTRONICALLY SIGNED BY: Bela Patel III, M.D. 07/10/2016 - 8:49:47 [facility] SYSTEM[facility]mael
--- NOTE | 2016-07-11 13:29 | Post Interventional Procedure ---
Pre-op diagnosis: Liver mass Post-op diagnosis: same Procedure: CT guided liver biopsy Radiologist: Kim Taylor Anesthesia: local Specimens: other (core samples sent to pathology) Estimated blood loss: minimal (less than 5 ml) Complications: none Condition: stable Description/Findings: A formal timeout was performed. Patient was placed supine on the CT table and purchasing and fiscal clerk imaging obtained. The right anterior lateral skin overlying the target lesion was prepped and draped in a sterile fashion. 5 cc 1% lidocaine was injected. Under CT fluoroscopic guidance, a 17-gauge guide needle was advanced into the lesion. Multiple 18-gauge core biopsies were obtained. Specimen was sent for routine pathology. The needle was removed. Patient tolerated the procedure well. Impression: CT-guided biopsy mass in right lobe of liver Assessment and Plan - Time spent with patient Time spent with patient: Less than 30 minutes
--- NOTE | 2016-07-11 13:31 | CT Report ---
History: Liver mass Date: 07/11/2016 Study: CT guided liver biopsy Comparison exam: July 08, 2016 CT-GUIDED BIOPSY RIGHT LOBE OF LIVER MASS Description: A formal timeout was performed. Patient was placed supine on the CT table and powder worker tnt imaging obtained. The right anterior lateral skin overlying the target lesion was prepped and draped in a sterile fashion. 5 cc 1% lidocaine was injected. Under CT fluoroscopic guidance, a 17-gauge guide needle was advanced into the lesion. Multiple 18-gauge core biopsies were obtained. Specimen was sent for routine pathology. The needle was removed. Patient tolerated the procedure well. Impression: CT-guided biopsy mass in right lobe of liver. This CT exam was performed using one or more the following dose reduction techniques: Automated exposure control, adjustment of the MA and/or KV according to patient size, or use of iterative reconstruction technique. PROCEDURE INTERPRETED AT [facility] DEPARTMENT OF RADIOLOGY Final Report Signed by: Dr. Kim Taylor
[2016-07-11] MEDS: FERROUS SULFATE 325 MG TABLET PO SCH (15:28)
[2016-07-11 20:28] VITALS: BP 164/66
--- NOTE | 2016-07-12 16:27 | Pathology Report from [facility] ---
[facility] ACCESSION # : [id number] PATIENT NAME : Kelli Kurtz ORDERING DR : NOLAN SALDANA MD CLINICAL HX: Liver mass POST-OP DX: Same SPECIMEN INFO: Liver mass, CT liver biopsy GROSS DESCRIPTION: Received in formalin labeled KELLI KURTZ & LIVER BX are three anshul shaped tissue fragments measuring from 0.8 cm to 0.1 cm and 1.8 x 0.1 cm submitted in one cassette. DIAGNOSIS FOR KELLI KURTZ: LIVER MASS BIOPSY: Unremarkable liver parenchyma. COLLECTED DATE: 07/11/2016 [facility] REPORT DATE: 07/12/2016 ELECTRONICALLY SIGNED BY: Meme Vyas M.D. 07/12/2016 - 12:56:04 [facility]
== END 2016-07-11 18:38 | disposition home or self-care (01) | DRG 443 ==
LOC: N.EDINP 10:51 → N.ED 10:51 → N.2E 15:25
PROVIDERS: ADMIT Family Medicine; ATTEND Family Medicine

== ENCOUNTER 2016-07-30 17:38 | Inpatient (IN) ==
[2016-07-31] MEDS ORDERED: PROMETHAZINE INJ 25 MG in SODIUM CHLORIDE 0.9% 50 ML IV PRN (07:57)
[2016-07-31] MEDS ORDERED: LOPERAMIDE 2 MG CAPSULE PO PRN ×2 (07:57)
[2016-07-31] MEDS ORDERED: LACTULOSE 20 GM/30 ML UDCUP PO PRN (07:57)
[2016-07-31] MEDS ORDERED: chlorproMAZINE INJ 50 MG in SODIUM CHLORIDE 0.9% 100 ML IV PRN (07:57)
[2016-07-31] MEDS ORDERED: ACETAMINOPHEN 325 MG TABLET PO PRN (07:57)
[2016-07-31] MEDS ORDERED: traMADol 50 MG TABLET PO PRN (07:57)
[2016-07-31] MEDS ORDERED: MYLANTA/LIDO VISC 2:1 300 ML BOTTLE SWISH/SWAL PRN (07:57)
[2016-07-31] MEDS ORDERED: chlorproMAZINE 25 MG TABLET PO PRN (07:57)
[2016-07-31] MEDS ORDERED: diphenhydrAMINE CAP 25 MG CAPSULE PO PRN (07:57)
[2016-07-31] MEDS ORDERED: guaiFENesin 200 MG/10 ML UDCUP PO PRN (07:57)
[2016-07-31] MEDS ORDERED: ONDANSETRON 4 MG/2 ML VIAL IV PRN (07:57)
[2016-07-31] MEDS ORDERED: ALPRAZolam 0.25 MG TABLET PO PRN (07:57)
[2016-07-31] MEDS ORDERED: MAGNESIUM HYDROXIDE SUSP 30 ML UDCUP PO PRN (07:57)
[2016-07-31] MEDS ORDERED: MYLANTA/LIDO VISC 2:1 300 ML BOTTLE SWISH/SPIT PRN (07:57)
[2016-07-31] MEDS ORDERED: BENZTROPINE 2 MG/2 ML AMP IV PRN (07:57)
[2016-07-31] MEDS ORDERED: ALUMINUM/MAGNES/SIMETH MAX STR 30 ML UDCUP PO PRN (07:57)
[2016-07-31] MEDS ORDERED: TEMAZEPAM 7.5 MG CAPSULE PO PRN (07:57)
[2016-07-31] MEDS ORDERED: chlorproMAZINE INJ 25 MG in SODIUM CHLORIDE 0.9% 100 ML IV PRN (07:57)
--- NOTE | 2016-07-31 08:06 | Oncology History&Physical ---
Assessment and Plan - Time spent with patient Time spent with patient: Greater than 30 minutes (1) Liver mass Status: Acute Assessment and plan: I will ask IR to biopsy a different liver nodule and what has been biopsied previously. We will ask for a diagnostic mammogram. I will hold off on doing a tagged red cell scan for now. Current Visit: No History of Present Illness History of present illness: Ms. Kurtz is a 66 year old female with a recent finding of numerous liver masses and jessie hepatis lymphadenopathy. She underwent biopsy 3 weeks ago of 1 of the large areas. Both biopsies done at that time returned back negative. Her tumor markers were all negative except for an elevated CA 15-3 which is most concerning for a breast malignancy, but is definitely not specific. We repeated an MRI yesterday which confirmed our previous CT findings of very concerning lymph nodes and liver lesions. The large centrally located liver lesion that has been biopsied was read as possibly a hemangioma. I had a lengthy discussion yesterday with the radiologist who read the MRI and they feel that there are other more peripherally located solid masses that would be more amenable to providing diagnostic pathology. I notified Ms. Kurtz of the MRI findings and recommended we admit her to the hospital to expedite her workup. We will ask IR to biopsy 1 of the more peripheral nodules in the liver. Supposedly Dr. Schwartz with IR is already aware of her case after speaking with the MRI radiologist yesterday. They also recommended a tagged red cell scan to see if this larger area in the liver is more consistent with a hemangioma. I will also arrange for a diagnostic bilateral mammogram given the difficulty in finding her primary tumor and the fact that her CA 15-3 was elevated. She continues to feel weak and tired and her energy level has dramatically decreased over the last 2 months. I am fairly certain that she has some type of metastatic tumor and we are working quickly to find a primary. Her son is a urologist and start will the graduated medical school with me and I have stayed in touch with him throughout this entire process. Home Medications Medication Instructions Recorded Confirmed Type Amlodipine Besylate 10 mg PO QPM 07/08/16 07/08/16 History Aspirin EC Tab 81 mg PO QPM 07/08/16 07/08/16 History Atorvastatin [Lipitor] 40 mg PO BEDTIME 07/08/16 07/08/16 History Calcium (Citr)/Vit D 200-125 1 tablet PO QPM 07/08/16 07/08/16 History [Citracal + D] Ferrous Sulfate Tab [Feosol 325 mg PO MOWEFR 07/08/16 07/08/16 History Original Tab] Krill/Om-3/Dha/Epa/Phospho/Ast 1 capsule PO DAILY 07/08/16 07/08/16 History [[place]-3 Krill Oil 300 mg Sfgl] Losartan/Hydrochlorothiazide 1 each PO QAM 07/08/16 07/08/16 History [Losartan-Hctz 100-12.5 mg Tab] Meloxicam 15 mg PO BID 07/08/16 07/08/16 History Metformin HCl 850 mg PO BID 07/08/16 07/08/16 History Multivit-Min/FA/Lycopen/Lutein 1 each PO QAM 07/08/16 07/08/16 History [Centrum Silver Tablet] Nabumetone 500 mg PO BID 07/08/16 07/08/16 History Pantoprazole Sodium 40 mg PO QAM 07/08/16 07/08/16 History Pioglitazone [Actos] 15 mg PO BID 07/08/16 07/08/16 History cloNIDine HCl [Clonidine HCl] 0.1 mg PO QPM 07/08/16 07/08/16 History traMADol TAB [Ultram] 50 mg PO Q6H PRN 07/08/16 07/08/16 History Allergies Allergy/AdvReac Type Severity Reaction Status Date / Time sulfamethoxazole Allergy RASH Verified 07/08/16 16:57 [From ] trimethoprim [From ] Allergy RASH Verified 07/08/16 16:57 Strong Painkillers AdvReac Nausea Uncoded 07/08/16 16:57 Medical,Surgical,& Family Hx - Medical History Cardio: History of: Hypertension Endocrine: History of: Diabetes Mellitus (NIDDM) Genitourinary: History of: Recurring Urinary Tract Infections Gastrointestinal: History of: GERD Reproductive: History of: Endometriosis - Surgical History Reproductive Surgeries: Surgical HX of;: Section, Hysterectomy - Family History Family History: Reports;: Family Heart Disease (Father with history of coronary artery disease), Family Stroke (Father of CVA at 48 years of age) - Social History Smoking Status: Never smoker 12 point system: reviewed and no additional remarkable complaints except as stated - Constitutional Constitutional: Present: fatigue, weight loss Exam - Constitutional Vitals: Period Temp Pulse Resp BP Sys/Bowen Pulse Ox Last 24 Hr 97.9 F 90 18 125/63 98 General appearance: normal weight, no acute distress - Head Head Exam: Present: normocephalic, atraumatic - Eye Eye Exam: Present: EOMI Pupils: Present: PERRL - ENT ENT exam: Present: normal exam, normal oropharynx - Neck Neck exam: Absent: lymphadenopathy, thyromegaly - Respiratory Respiratory exam: Present: CTAB. Absent: wheezes - Cardiovascular Cardiovascular exam: Present: RRR. Absent: JVD, systolic murmur - GI/Abdominal GI/Abdominal exam: Present: soft. Absent: ascites, distended, firm, mass - Neurological Exam Neurological exam: Present: alert, oriented X3 - Psychiatric Psychiatric exam: Present: normal affect, normal mood - Skin Skin exam: Present: warm, dry Results - Diagnostic Findings Procedure: MRI: report reviewed by me
[2016-07-31] MEDS ORDERED: DIAZEPAM 5 MG TABLET PO ONE (10:21)
[2016-07-31] MEDS ORDERED: SODIUM CHLORIDE 0.45% 1,000 ML IV SCH (10:30)
--- NOTE | 2016-07-31 10:31 | IR History and Physical Update ---
IR Pre-Procedure - History and Physical H&P was reviewed, the patient examined and there: are no changes in the patients condition since last H&P was completed. Reason for procedure:: 66 yo F with 2 negative liver biopsies for liver masses. Asked to perform a third for diagnosis. Will target a smaller peripheral mass today. - Dictation Physical: refer to H&P completed by admitting physician - Physical Exam Vital Signs: Last Vital Signs Temp 97.4 F L 07/31/16 09:10 Pulse 80 07/31/16 09:10 Resp 20 07/31/16 09:10 BP 140/70 07/31/16 09:10 Pulse Ox 95 07/31/16 09:10 Mental Status: alert and oriented - Sedation IR anesthesia plan for sedation: none ASA Class: II - Risks Risks: Procedures explained. Risks discussed include, but not limited to, the following:[ pain, bleeding, infection, nondiagnostic bx] All questions answered. The following alternatives were discussed:[ surgical bx] Risks and benefits discussed with: patient Consent obtained from: patient Assessment and Plan - Time spent with patient Time spent with patient: Less than 30 minutes (1) Liver mass Status: Acute Assessment and plan: A: Liver mass P: US guided bx of one of the smaller peripheral lesions today Current Visit: No
--- NOTE | 2016-07-31 12:27 | Post Interventional Procedure ---
Pre-op diagnosis: Liver mass Post-op diagnosis: same Procedure: US guided liver mass bx x2 lesions Radiologist: Yan Schwartz Anesthesia: local Specimens: other (3 x 18 ga cores) Estimated blood loss: none Complications: none Condition: stable Description/Findings: First lesion clearly solid and no issues. Sampled twice. Second lesion behaved like hemangioma with air in vessels on US and bleeding after single biopsy. Sampled once. Gelfoam slurry injected to promote hemostasis. Rt lateral decub positioning for 6 hours after bx. Assessment and Plan - Time spent with patient Time spent with patient: Less than 30 minutes (1) Liver mass Status: Acute Assessment and plan: A: Liver mass P: US guided bx of one of the smaller peripheral lesions today Current Visit: No
--- NOTE | 2016-07-31 13:19 | Ultrasound Report ---
US biopsy liver core Indication: Multiple liver masses. ULTRASOUND-GUIDED LIVER BIOPSY, MASS Description: A formal timeout was performed. Maximum sterile barrier technique was used. Liver was evaluated with ultrasound. Right upper quadrant was prepped and draped in sterile fashion. Lidocaine was administered. Under sonographic guidance, a 17-gauge coaxial biopsy needle was advanced into the solid lesion adjacent to the gallbladder fossa. A captured sonographic image documents needle position. Through the needle, 2 x 18-gauge core biopsies were obtained. Needle position was adjusted into a second lesion that is more superficial along the anterior margin of the right liver lobe, subcapsular in location. A single 18-gauge core sample was then obtained under sonographic guidance. After obtaining the sample, it was evident that air-filled multiple vessels in the area suggesting a AVM or hemangioma. No additional biopsies were obtained at the site. Gelfoam slurry was injected as the needle was removed. Hemostasis was achieved. Final ultrasound images showed no evidence of hematoma. Patient tolerated the procedure well. Specimen: 3 x 18 gauge core samples of 2 separate lesions as described. Impression: Successful liver biopsy. First lesion sampled twice, solid, consistent with tumor. Second lesion appears to be a hemangioma requiring Gelfoam slurry hemostasis. PROCEDURE INTERPRETED AT [facility] DEPARTMENT OF RADIOLOGY Final Report Signed by: Yan Schwartz M.D.
[2016-07-31] MEDS: PIOGLITAZONE 15 MG TABLET PO SCH (20:24)
[2016-07-31] MEDS ORDERED: ATORVASTATIN 40 MG TABLET PO SCH (21:00)
[2016-07-31] MEDS ORDERED: cloNIDine 0.1 MG TABLET PO SCH (21:00)
--- NOTE | 2016-08-01 08:14 | Discharge Summary ---
Hospital Course - Hospital Course Hospital Course: Ms. Kurtz is a 66-year-old white female with numerous liver lesions and an elevated CA 15-3 who was admitted for needle biopsy and further workup for likely metastatic tumor of unknown primary at this time. She underwent ultrasound-guided liver biopsy yesterday with 2 separate biopsy done. 1 of the biopsies appear to be hemangioma but the other one was within a solid tumor. She did well overnight and only has mild pain on the right side. She is scheduled to have a diagnostic bilateral mammogram today given the elevation in her breast tumor marker. She will be discharged home after the mammogram today. The next step in her workup will likely be a PET scan once we get some type of pathology confirming malignancy. She already had 2 previous biopsies over the last 3 weeks and I will have her return back is just normal liver. Her recent imaging almost certainly show that she has some type of tumor present in and around her liver. I will schedule follow-up with me in clinic once we get pathology back and arrange for a PET scan. Unfortunately, metastatic tumor to the liver of unknown primary such as this, almost always bodes a poor prognosis. Diagnosis - Discharge Diagnosis (1) Liver mass Status: Acute Discharge Plan - Discharge Data Disposition: Disch To Home/Self Care Condition at Discharge: Stable Discharge Diet: advance to your usual diet Activity: resume usual activities as tolerated Hygiene: no restrictions Weight Bearing at Discharge: full weight bearing Driving: no restrictions - Discharge Medications Continue Krill/Om-3/Dha/Epa/Phospho/Ast [[place]-3 Krill Oil 300 mg Sfgl] 1 capsule PO DAILY Calcium (Citr)/Vit D 200-125 [Citracal + D] 1 tablet PO QPM Multivit-Min/FA/Lycopen/Lutein [Centrum Silver Tablet] 1 each PO QAM Aspirin EC Tab 81 mg PO QPM cloNIDine HCl [Clonidine HCl] 0.1 mg PO QPM Amlodipine Besylate 10 mg PO QPM Pantoprazole Sodium 40 mg PO QAM Atorvastatin [Lipitor] 40 mg PO BEDTIME Pioglitazone [Actos] 15 mg PO BID Ferrous Sulfate Tab [Feosol Original Tab] 325 mg PO MOWEFR Losartan/Hydrochlorothiazide [Losartan-Hctz 100-12.5 mg Tab] 1 each PO QAM - Follow Up or Referral - Forms/Instructions Exam - Constitutional Vitals: Period Temp Pulse Resp BP Sys/Bowen Pulse Ox Last 24 Hr 97.4 F-99.6 F 72-96 14-20 131-165/62-75 93-100 Discharge Results Procedures and tests throughout hospitalization: Pending Orders 08/01/16 MM diagnostic mammo BI Routine Labs on day of discharge: Labs from last 24 hours 07/31/16 16:39 POC Glucose 153 H DS: Provider Date of admission: 07/31/16 06:20 Primary care physician: Josef Guo DO Attending physician on admission: Phill Segovia MD Consults: 07/31/16 09:09 Consult to Dietitian [CONS] Routine Reason for Dietitian: Diet Instruction Discharging clinician: Phill Segovia MD
[2016-08-01] MEDS: PIOGLITAZONE 15 MG TABLET PO SCH (08:37)
[2016-08-01] MEDS ORDERED: MULTIVITAMIN (CENTRUM) TABLET PO SCH (09:00)
[2016-08-01] MEDS ORDERED: PANTOPRAZOLE 40 MG TABLET PO SCH (09:00)
[2016-08-01] MEDS ORDERED: ASPIRIN EC 81 MG TABLET PO SCH (09:00)
[2016-08-01] MEDS ORDERED: FERROUS SULFATE 325 MG TABLET PO SCH (09:00)
[2016-08-01] MEDS ORDERED: hydroCHLOROthiazide 12.5 MG CAPSULE PO SCH (09:00)
[2016-08-01] MEDS ORDERED: CALCIUM (CITRATE)/VITAMIN D 200 MG-125 UNIT TABLET PO SCH (09:00)
[2016-08-01] MEDS ORDERED: amLODIPine 10 MG TABLET PO SCH (09:00)
[2016-08-01] MEDS ORDERED: LOSARTAN 50 MG TABLET PO SCH (09:00)
--- NOTE | 2016-08-01 09:27 | Mammography Report ---
BILATERAL DIGITAL DIAGNOSTIC MAMMOGRAM WITH CAD Date of study: 08/01/2016 12:00 AM History: 66-year-old female with history of multiple liver masses, evaluate for source of primary. History of previous left breast biopsy. Routine digital CC and MLO views of both breasts were performed and evaluated with the [employer] computer assisted detection (CAD) system. Comparison: April 09, 2016, April 07, 2015, April 01, 2014, March 27, 2013, March 24, 2012, March 22, 2011 and March 21, 2010. The breasts are composed of primarily fatty density. There are bilateral secretory microcalcifications noted without significant change. No masses, areas of architectural distortion or suspicious microcalcifications are noted within either breast. IMPRESSION: BI-RADS Category 2 - Benign findings. Annual screening mammography is recommended. Patient information entered into a reminder system with target due date for the next mammogram. PROCEDURE INTERPRETED AT [facility] DEPARTMENT OF RADIOLOGY Final Report Signed by: Dr. Afua Wang
[2016-08-01 09:38] VITALS: BP 161/83
--- NOTE | 2016-08-03 11:16 | Pathology Report from [facility] ---
[facility] [place] ACCESSION # : [id number] PATIENT NAME : Kelli Kurtz ORDERING DR : ROBERTO BALLESTEROS MD CLINICAL HX: Metastatic cancer per imaging studies - See previous tumor markers - two previous liver biopsies [facility] See path report [id number] POST-OP DX: Same SPECIMEN INFO: Liver, U/S claudine cut biopsy x 3 GROSS DESCRIPTION: Received in formalin labeled KELLI KURTZ & LIVER are three anshul shaped tissue fragments measuring from 1.4 x 0.1 cm to 2.0 x 0.1 cm, submitted in one cassette. DIAGNOSIS FOR KELLI KURTZ: LIVER, U/S GUIDED NEEDLE BIOPSIES: Metastatic adenocarcinoma, poorly differentiated.NOTE: Tumor cells show immunophenotype CK7+(focal,weak)/ CK20+/ CDX2-/ CA19-9-/ ER-/ TTF-1-/ HepPar1-/ GATA3-/ CA-125+( focal, weak). This pattern is non-specific, but suggests gastric or pancreaticobiliary origin. Other less likely possibilities includes ovary, breast, or lung origin. COLLECTED DATE: 07/31/2016 [facility] REPORT DATE: 08/02/2016 ELECTRONICALLY SIGNED BY: Giovanni Nagel M.D. 08/02/2016 - 14:15:54 [facility]
--- NOTE | 2016-08-20 17:15 | Pathology Report from [facility] ---
[facility] ACCESSION # : [id number] PATIENT NAME : Kelli Kurtz ORDERING DR : ROBERTO BALLESTEROS MD CLINICAL HX: Metastatic cancer per imaging studies - See previous tumor markers - two previous liver biopsies [facility] See path report [id number] POST-OP DX: Same SPECIMEN INFO: Liver, U/S claudine cut biopsy x 3 GROSS DESCRIPTION: Received in formalin labeled KELLI KURTZ & LIVER are three anshul shaped tissue fragments measuring from 1.4 x 0.1 cm to 2.0 x 0.1 cm, submitted in one cassette. DIAGNOSIS FOR KELLI KURTZ: LIVER, U/S GUIDED NEEDLE BIOPSIES: Metastatic adenocarcinoma, poorly differentiated.NOTE: Tumor cells show immunophenotype CK7+(focal,weak)/ CK20+/ CDX2-/ CA19-9-/ ER-/ TTF-1-/ HepPar1-/ GATA3-/ CA-125+( focal, weak). This pattern is non-specific, but suggests gastric or pancreaticobiliary origin. Other less likely possibilities includes ovary, breast, or lung origin. COLLECTED DATE: 07/31/2016 [facility] REPORT DATE: 08/02/2016 SUPPLEMENTAL TEXT: The following is the CancerTYPE ID test from [employer] , [place], [place]: Quantity Not Sufficient. SUPPLEMENTAL DATE: 08/20/2016 ELECTRONICALLY SIGNED BY: Giovanni Nagel M.D. 08/02/2016 - 14:15:54 MTDD
--- NOTE | 2016-08-24 20:15 | Pathology Report from [facility] ---
[facility] ACCESSION # : [id number] PATIENT NAME : Kelli Kurtz ORDERING DR : ROBERTO BALLESTEROS MD CLINICAL HX: Metastatic cancer per imaging studies - See previous tumor markers - two previous liver biopsies [facility] See path report [id number] POST-OP DX: Same SPECIMEN INFO: Liver, U/S claudine cut biopsy x 3 GROSS DESCRIPTION: Received in formalin labeled KELLI KURTZ & LIVER are three anshul shaped tissue fragments measuring from 1.4 x 0.1 cm to 2.0 x 0.1 cm, submitted in one cassette. DIAGNOSIS FOR KELLI KURTZ: LIVER, U/S GUIDED NEEDLE BIOPSIES: Metastatic adenocarcinoma, poorly differentiated.NOTE: Tumor cells show immunophenotype CK7+(focal,weak)/ CK20+/ CDX2-/ CA19-9-/ ER-/ TTF-1-/ HepPar1-/ GATA3-/ CA-125+( focal, weak). This pattern is non-specific, but suggests gastric or pancreaticobiliary origin. Other less likely possibilities includes ovary, breast, or lung origin. COLLECTED DATE: 07/31/2016 [facility] REPORT DATE: 08/02/2016 SUPPLEMENTAL TEXT: The following is the CancerTYPE ID test from [facility] , [place], [place]: Quantity Not Sufficient. SUPPLEMENTAL DATE: 08/20/2016 ELECTRONICALLY SIGNED BY: Giovanni Nagel M.D. 08/02/2016 - 14:15:54 MTDD
== END 2016-08-01 10:20 | disposition home or self-care (01) | DRG 437 ==
LOC: N.4E 07-31 06:20
PROVIDERS: ADMIT Specialist; ATTEND Specialist